=== PATIENT | female | born 1990 | race Caucasian/White ===

== ENCOUNTER → 2017-07-17 10:47 | Outpatient (CLI) | payer BC, SELFPAY ==
[2017-07-17 14:29] LABS: Free T3 2.4 pg/mL (2.18-3.98); T4 Free Direct 1.21 ng/dL (0.76-1.46); Thyroid Stim Hormone (TSH) 0.36 uIU/mL (0.358-3.74)
== END ==
PROVIDERS: Family Provider Obstetrics & Gynecology; PCP Obstetrics & Gynecology; Visit Provider Obstetrics & Gynecology
DX: E03.9 Hypothyroidism, unspecified (principal)
CPT/HCPCS: 36415; 84439; 84443; 84481

== ENCOUNTER → 2017-07-24 15:49 | Outpatient (CLI) | payer BC, SELFPAY | PROVIDERS: Family Provider Obstetrics & Gynecology; PCP Obstetrics & Gynecology; Visit Provider Obstetrics & Gynecology | DX: R30.0 Dysuria (principal); R35.0 Frequency of micturition; R39.15 Urgency of urination | CPT/HCPCS: 87086; 87088 ==

== ENCOUNTER → 2017-08-14 09:23 | Outpatient (CLI) | payer BC, SELFPAY ==
[2017-08-14 10:44] LABS: Glucose Challenge Gest 1H 50g 192 mg/dL (70-140)
[2017-08-14 10:56] LABS: Hematocrit 34.4 % (37-47); Hemoglobin 11.1 g/dl (12.0-15.0); Mean Corp Hgb Conc 32.3 g/gl (32-36); Mean Corpuscular Hgb 31.3 pg (27.0-32.0); Mean Corpuscular Volume 96.9 fL (81-99); Mean Platelet Vol. 10.3 fl (6.2-12.0); Platelet Count 243 K/mm3 (150-450); RBC Distribution Width CV 13.7 % (11.6-14.6); RBC Distribution Width SD 47.7 fl (35.1-43.9); Red Blood Count 3.55 M/mm3 (4.2-5.4); White Blood Count 7.7 K/mm3 (4.4-11.0)
[2017-08-14 10:57] LABS: Scan Indicated on CBC? Y/N NO
== END ==
PROVIDERS: Family Provider Obstetrics & Gynecology; PCP Obstetrics & Gynecology; Visit Provider Obstetrics & Gynecology
DX: Z34.83 Encounter for supervision of other normal pregnancy, third trimester (principal)
CPT/HCPCS: 36415; 82950; 85027

== ENCOUNTER → 2017-08-14 12:28 | Outpatient (CLI) | payer BC, SELFPAY | PROVIDERS: Visit Provider Obstetrics & Gynecology | DX: N39.0 Urinary tract infection, site not specified (principal) | CPT/HCPCS: 87086 ==

== ENCOUNTER → 2017-08-22 07:47 | Outpatient (CLI) | payer BC, SELFPAY ==
[2017-08-22 09:36] LABS: Glucose GTT-Gestation. Fasting 81 mg/dL (<105)
[2017-08-22 09:40] LABS: Glucose GTT-Gestational 1 Hr 214 mg/dL (<190)
[2017-08-22 10:54] LABS: Glucose GTT-Gestational 2 Hr 191 mg/dL (<165)
[2017-08-22 11:44] LABS: Glucose GTT-Gestational 3 Hr 124 L (<145)
== END ==
PROVIDERS: Visit Provider Obstetrics & Gynecology
DX: R73.09 Other abnormal glucose (principal)
CPT/HCPCS: 36415; 82951; 82952

== ENCOUNTER 2017-08-26 08:24 | Outpatient (RCR) | payer BC, SELFPAY | END 2017-08-26 08:25 | LOC: DC 08:24 | PROVIDERS: Visit Provider Obstetrics & Gynecology | DX: O24.410 Gestational diabetes mellitus in pregnancy, diet controlled (principal); Z71.3 Dietary counseling and surveillance | CPT/HCPCS: 97802; G0108 ==

== ENCOUNTER 2017-09-08 10:32 | Outpatient (RCR) | payer BC, SELFPAY | END 2017-09-29 10:33 | disposition home or self-care (01) | LOC: DC 10:32 | PROVIDERS: Referring Provider Obstetrics & Gynecology; Visit Provider Obstetrics & Gynecology | DX: O24.410 Gestational diabetes mellitus in pregnancy, diet controlled (principal); Z71.3 Dietary counseling and surveillance ==

== ENCOUNTER → 2017-09-18 17:43 | Outpatient (CLI) | payer BC, SELFPAY ==
[2017-09-18 18:18] LABS: T4 Free Direct 1.11 ng/dL (0.76-1.46)
== END ==
PROVIDERS: Visit Provider Obstetrics & Gynecology
DX: O99.283 Endocrine, nutritional and metabolic diseases complicating pregnancy, third trimester (principal); E03.9 Hypothyroidism, unspecified; Z3A.00 Weeks of gestation of pregnancy not specified
CPT/HCPCS: 84439; 84443; 84481

== ENCOUNTER → 2017-10-02 10:07 | Outpatient (CLI) | payer BC, SELFPAY ==
[2017-10-02 13:12] LABS: Group B Strep DNA By PCR Negative (Negative); Internal Control PASS; Probe Check PASS; Specimen Processing Control PASS
== END ==
PROVIDERS: Visit Provider Obstetrics & Gynecology
DX: Z36.85 Encounter for antenatal screening for Streptococcus B (principal)
CPT/HCPCS: 87081; 87653

== ENCOUNTER 2017-10-13 16:35 | Outpatient (CLI) | payer BC, SELFPAY ==
[2017-10-13 16:50] VITALS: BMI 28.8
--- NOTE | 2017-10-15 08:49 | OB.TRI.NOTE ---
History of Present Illness Date of Service: 10/13/17 Was patient seen by the physician?: No Reason For Visit: Decreased Movement Date of Service: 10/13/17 Final AMARIS: 11/06/17 Gestational age: 36 Weeks and 4 Days History of Present Illness: 36+ week intrauterine presents with decreased movement and swelling of ankles. Denies any PIH symptoms otherwise. Had a headache the day before presentation but none on the day of presentation. Home Medications Medication Instructions Recorded Levothyroxine [Synthroid] 100 mcg PO DAILY 10/13/17 Vit No.130/Iron/FA 1 each PO 10/13/17 [ Vitamins] Allergies No Known Allergies Allergy (Verified 10/13/17 16:51) NST - FHR Rate Baby A NST Reactive:: Yes FHR Category:: Category I Impression/Plan 36+ week intrauterine with decreased movement and edema. No evidence of PIH and reactive nonstress test on labor and delivery. Released to home with routine instructions and follow-up. To return if movements did not not meet discussed criteria.
== END 2017-10-13 17:30 | disposition home or self-care (01) ==
LOC: WPOUT 16:46 → WP 10-14 07:53
PROVIDERS: Visit Provider Obstetrics & Gynecology
DX: O36.8130 Decreased fetal movements, third trimester, not applicable or unspecified (principal); O12.03 Gestational edema, third trimester; Z3A.36 36 weeks gestation of pregnancy
CPT/HCPCS: 59025; 59050; 99218; G0378

== ENCOUNTER → 2017-10-24 09:32 | Outpatient (CLI) | payer BC, SELFPAY ==
[2017-10-24 11:05] LABS: Free T3 1.8 pg/mL (2.18-3.98); T4 Free Direct 1.13 ng/dL (0.76-1.46); Thyroid Stim Hormone (TSH) 0.57 uIU/mL (0.358-3.74)
== END ==
PROVIDERS: Visit Provider Obstetrics & Gynecology
DX: E03.9 Hypothyroidism, unspecified (principal)
CPT/HCPCS: 36415; 84439; 84443; 84481

== ENCOUNTER 2017-11-04 19:15 | Inpatient (IN) | payer BC, SELFPAY ==
--- NOTE | 2017-11-04 19:15 | DT_ITS ---
This patient was seen during an EMR downtime November 03, 2017 - November 10, 2017. This patient may have a combination of paper and electronic documentation or all paper documentation. All documentation is viewable within the e-chart portion of [facility] for each patient visit.
[2017-11-07 09:51] LABS: Hematocrit 35.2 % (37-47); Hemoglobin 11.6 g/dl (12.0-15.0); Mean Corpuscular Hgb 30.4 pg (27.0-32.0); Mean Corpuscular Volume 92.1 fL (81-99); RBC Distribution Width CV 13.6 % (11.6-14.6); RBC Distribution Width SD 45.1 fl (35.1-43.9); Red Blood Count 3.82 M/mm3 (4.2-5.4); White Blood Count 7.6 K/mm3 (4.4-11.0)
[2017-11-07 09:52] LABS: Mean Platelet Vol. 11.1 fl (6.2-12.0); Platelet Count 219 K/mm3 (150-450); Scan Indicated on CBC? Y/N NO
[2017-11-10 16:00] LABS: ALB/GLOB Ratio 0.6 RATIO (0.9-2.4); AST(SGOT) 19 U/L (15-37); Alanine Aminotransfer ALT/SGPT 19 U/L (13-56); Albumin, Serum 2.6 g/dL (3.2-5.0); Alkaline Phosphatase 147 U/L (45-117); Anion Gap 11 (5-15); BUN 11 mg/dL (7-18); BUN/Creat Ratio 19.6 RATIO (10-20); Calcium,Total 8.6 mg/dL (8.5-10.1); Chloride 108 mmol/L (98-107); Creatinine, Serum 0.56 mg/dL (0.55-1.02); EST Glomerular Filtration Rate 141 mL/min (>60); Est Glom Filt Rate - Afr Amer 171 mL/min (>60); Globulin 4.2 g/dL (2.2-4.2); Glucose 67 mg/dL (74-106); Protein, Total 6.8 g/dL (6.4-8.2); Sodium Level 142 mmol/L (136-145)
[2017-11-14 09:54] LABS: Bedside Glucose 86 mg/dL (70-110)
[2017-11-14 09:55] LABS: Bedside Glucose 101 mg/dL (70-110)
[2017-11-14 09:57] LABS: Bedside Glucose 82 mg/dL (70-110)
[2017-11-14 09:58] LABS: Bedside Glucose 79 mg/dL (70-110)
[2017-11-14 10:10] LABS: Bedside Glucose 98 mg/dL (70-110)
[2017-11-14 10:14] LABS: Bedside Glucose 79 mg/dL (70-110)
[2017-11-14 10:16] LABS: Bedside Glucose 99 mg/dL (70-110)
[2017-11-14 10:18] LABS: Bedside Glucose 85 mg/dL (70-110)
[2017-11-14 10:20] LABS: Bedside Glucose 128 mg/dL (70-110)
[2017-11-14 10:24] LABS: Bedside Glucose 101 mg/dL (70-110)
[2017-11-14 10:31] LABS: Bedside Glucose 61 mg/dL (70-110)
[2017-11-14 10:32] LABS: Bedside Glucose 54 mg/dL (70-110)
[2017-11-14 10:36] LABS: Bedside Glucose 122 mg/dL (70-110)
[2017-11-14 10:37] LABS: Bedside Glucose 74 mg/dL (70-110)
[2017-11-14 10:39] LABS: Bedside Glucose 67 mg/dL (70-110)
[2017-11-14 10:40] LABS: Bedside Glucose 72 mg/dL (70-110)
== END 2017-11-08 13:40 | disposition home or self-care (01) | DRG 775 ==
PROVIDERS: Admitting Provider Obstetrics & Gynecology; Visit Provider Obstetrics & Gynecology
DX: O26.62 Liver and biliary tract disorders in childbirth (principal); K83.1 Obstruction of bile duct; O24.429 Gestational diabetes mellitus in childbirth, unspecified control; Z3A.39 39 weeks gestation of pregnancy; Z37.0 Single live birth
CPT/HCPCS: 36415; 59050; 76815; 80053; 82962; 85027; 86850; 86900; 99218; J7120; A4216; G0378

== ENCOUNTER → 2018-01-01 16:24 | Outpatient (CLI) | payer BC, SELFPAY ==
[2018-01-01 17:45] LABS: Thyroid Stim Hormone (TSH) 0.04 uIU/mL (0.358-3.74)
[2018-01-02 10:24] LABS: T3 Total - Triiodothyronine 0.95 ng/mL (0.6-1.81)
[2018-01-07 12:45] LABS: T3 Reverse 24.5 ng/dL (9.2-24.1)
== END ==
PROVIDERS: Visit Provider Obstetrics & Gynecology
DX: E03.9 Hypothyroidism, unspecified (principal)
CPT/HCPCS: 36415; 84439; 84443; 84480; 84481; 84482

== ENCOUNTER → 2018-08-04 16:55 | Outpatient (CLI) | payer BC, SELFPAY ==
[2018-08-04 17:45] LABS: Hemoglobin A1c 4.8 % (4.2-6.3)
== END ==
PROVIDERS: Visit Provider Obstetrics & Gynecology
DX: Z86.32 Personal history of gestational diabetes (principal)
CPT/HCPCS: 83036

== ENCOUNTER → 2019-11-10 | Outpatient (CLI) | payer BC, SELFPAY ==
[2019-11-15 14:14] LABS: HPV Reflexed? NOT INDICATED
== END | disposition home or self-care (01) ==
LOC: LABSPEC 16:00
PROVIDERS: Visit Provider Obstetrics & Gynecology
DX: Z12.4 Encounter for screening for malignant neoplasm of cervix (principal)
CPT/HCPCS: 88175; G0145

== ENCOUNTER → 2019-11-18 11:39 | Outpatient (CLI) | payer BC, SELFPAY ==
[2019-11-18 16:20] LABS: Chlamydia Trachomatis by PCR Negative (Negative); Neisserai gonorrhoeae by PCR Negative (Negative); Probe Check PASS; Sample Adequacy Control PASS; Specimen Processing Control PASS
== END ==
PROVIDERS: Visit Provider Obstetrics & Gynecology
DX: Z11.3 Encounter for screening for infections with a predominantly sexual mode of transmission (principal)
CPT/HCPCS: 87491; 87591

== ENCOUNTER → 2020-12-28 09:29 | Outpatient (CLI) | payer SELFPAY ==
[2020-12-28 10:58] LABS: Glucose 75GTT - 30 minutes 120 mg/dL (100-160)
[2020-12-28 11:01] LABS: Glucose 75GTT - Fasting 86 mg/dL (70-99)
[2020-12-28 11:04] LABS: Insulin 75GTT - 30 MIN 64.6 mU/L (Not Estab.)
[2020-12-28 12:27] LABS: Glucose 75GTT - 60 minutes 157 mg/dL (100-160)
[2020-12-28 12:32] LABS: Insulin 75GTT - 60 min 98.6 mU/L (Not Estab)
[2020-12-28 12:58] LABS: Glucose 75GTT - 120 minutes 119 mg/dL (70-140)
[2020-12-28 13:05] LABS: Insulin 75GTT - 120 min 57.2 mU/L (Not Estab.)
== END ==
PROVIDERS: Referring Provider Obstetrics & Gynecology; Visit Provider Obstetrics & Gynecology
DX: Z13.1 Encounter for screening for diabetes mellitus (principal); Z86.32 Personal history of gestational diabetes
CPT/HCPCS: 36415; 82951; 82952; 83525

== ENCOUNTER → 2021-10-03 | Outpatient (CLI) | payer SELFPAY ==
[2021-10-03 14:05] LABS: Hematocrit 40.3 % (37-47); Hemoglobin 13.5 g/dL (12.0-15.0); Mean Corp Hgb Conc 33.5 g/dL (32-36); Mean Corpuscular Hgb 31.8 pg (27.0-32.0); Mean Corpuscular Volume 94.8 fL (81-99); Mean Platelet Vol. 10.7 fl (6.2-12.0); Platelet Count 275 K/mm3 (150-450); RBC Distribution Width CV 12.9 % (11.6-14.6); RBC Distribution Width SD 44.8 fl (35.1-43.9); Red Blood Count 4.25 M/mm3 (4.2-5.4); White Blood Count 9.2 K/mm3 (4.4-11.0)
[2021-10-03 14:18] LABS: AST(SGOT) 16 U/L (15-37); Alanine Aminotransfer ALT/SGPT 22 U/L (13-56); Albumin, Serum 3.8 g/dL (3.2-5.0); Alkaline Phosphatase 52 U/L (45-117); Anion Gap 3 (5-15); BUN 11 mg/dL (7-18); BUN/Creat Ratio 15.8 RATIO (10-20); Calcium,Total 8.8 mg/dL (8.5-10.1); Chloride 106 mmol/L (98-107); EST Glomerular Filtration Rate 106 mL/min (>60); Est Glom Filt Rate - Afr Amer 128 mL/min (>60); Estradiol 20.5 pg/mL; Ferritin 24 ng/mL (8-252); Follicle Stimulating Hormone 3.8 mIU/mL; Glucose 76 mg/dL (74-106); Iron 80 ug/dL (50-170); Iron Binding Capacity,Total 380 ug/dL (250-450); Prolactin 11.1 ng/mL; Protein, Total 7.8 g/dL (6.4-8.2); Sodium Level 138 mmol/L (136-145)
[2021-10-10 23:01] LABS: Sex Hormone-binding Globulin 31.5 nmol/L (24.6-122.0); Zinc, Plasma or Serum 146 ug/dL (44-115)
== END | disposition home or self-care (01) ==
LOC: WOBLAB 12:23
PROVIDERS: Visit Provider Obstetrics & Gynecology
DX: R51.9 Headache, unspecified (principal); N92.6 Irregular menstruation, unspecified; R23.2 Flushing
CPT/HCPCS: 36415; 80053; 82627; 82670; 82728; 83001; 83540; 83550; 84146; 84270; 84403; 84630; 85027; 82626

== ENCOUNTER → 2024-06-29 | Outpatient (CLI) | payer OTHER, SELFPAY ==
--- NOTE | 2024-06-29 | TONS_PTH ---
PATIENT: PRADIP GALLOWAY LOC: [facility] U#:[id number] AGE/SX: 33/ ROOM: RE06/29/[address]: Dr. Renato Lynn MD : 1990 BED: DIS: 06/29/2024 SPEC #: [id number] RECD: 06/30/24 09:04 STATUS: AMRIT SAM #: [id number] KING: 06/29/24 00:[address]: Renato Lynn DEPT: SURGICAL PATHOLOGY RECD BY: Austin Marsh ENTERED: 06/30/24 09:09 SP TYPE: TONSILS OTHR DR: [place] Tissues: Tonsil, NOS Procedures: Surgery Specimen Level III HEADER OPERATION: Tonsillectomy PRE-OP DIAGNOSIS: Chronic tonsillitis TISSUE SUBMITTED: Bilateral tonsils - pin on right MICROSCOPIC DIAGNOSIS Bilateral tonsils, tonsillectomy: Reactive lymphoid hyperplasia, consistent with chronic tonsillitis. Focal actinomycosis colonization. SJ: 07/01/2024 MICROSCOPIC DESCRIPTION Slides are reviewed. GROSS DESCRIPTION Received is one container labeled with the patient's name and designated tonsils - pin right are two tonsils that in aggregate weigh 10.7 gm. The right tonsil has a pin-tie on it and measures 3.5 x 2 x 2 cm. The left tonsil measures 3.5 x 2 x 1.5 cm. Both tonsils are similar in appearance. The external surfaces are pink-huerta, smooth, glistening and somewhat lobulated. Focally they are hemorrhagic, granular and bear cautery artifact. Serial cross sections through the tonsils reveal normal tonsillar architecture. Sections are submitted in two cassettes as follows: 1 - right tonsil, 2 - left tonsil. JOHANNA. 06/30/2024 TC:3 CPT: 69061 x2
== END | disposition home or self-care (01) ==
PROVIDERS: Referring Provider Otolaryngology; Visit Provider Otolaryngology
DX: J35.01 Chronic tonsillitis (principal)
CPT/HCPCS: 88304